=== PATIENT | male | born 1935 | race Caucasian/White ===

== ENCOUNTER 2017-08-12 18:10 | Inpatient (IN) | payer OTHER, MEDICARE ==
--- NOTE | ~2017-08-12 | HC ---
[facility] [place] [address] CONSULTATION Name: DOMENICOANGELES Room #: 200-I ADM IN M.R.#: [id number] Admission: 08/12/17 Attend Phys: Alberto De La Torre MD, Discharge: Date of : 33 Report #: [id number] THIS REPORT FOR: //name// CC: Jamel De La Torre REASON FOR CONSULTATION: Heart block HISTORY OF PRESENT ILLNESS: The patient is an 82-year-old who follows with Dr. De La Torre, over the past several days he has been experiencing increased shortness of breath, presyncopal symptoms. He called into the office and his beta kai was decreased. However, when he came in to clinic yesterday, he was noted to be in 2:1 heart block as well as complete heart block with a junctional escape rhythm. His beta blockers have been held for 48 hours as of today and he still has a 2:1 heart block and complete heart block with ventricular rates in the 20s to 30s. REVIEW OF SYSTEMS: A 12-point review of systems was performed and was negative other than what I mentioned above. PAST MEDICAL HISTORY: Includes: 1. Coronary artery disease, status post stents to the LAD and circumflex. 2. Hypertension. 3. Hypercholesterolemia. 4. Prior CVA. 5. Carotid stenosis. 6. Ischemic cardiomyopathy with an EF of 40-45%. SOCIAL HISTORY: He does not smoke. FAMILY HISTORY: Noncontributory. ALLERGIES: None. MEDICATIONS: Have been reviewed and include Meloxicam, losartan, aspirin, terazosin, Keppra, insulin, atorvastatin, Zofran, and hydrocodone. PHYSICAL EXAMINATION: VITAL SIGNS: Temperature is 36.3, pulse is 33, respirations 18, blood pressure 124/48, and sats are 98%. GENERAL: He is in no acute distress. HEENT: Oropharynx is clear. NECK: Supple with no thyromegaly. HEART: Bradycardic. No murmurs. LUNGS: Clear to auscultation bilaterally. ABDOMEN: Soft, nontender, and nondistended with no hepatosplenomegaly. EXTREMITIES: There is no clubbing, cyanosis, or edema. [facility] [address] [place] [address] CONSULTATION Name: ANGELES ACUÑA Kevin Room #: 200-I [facility] IN [facility].#: [id number] Admission: 08/12/17 Attend Phys: Alberto De La Torre MD, Discharge: Date of : 33 Report #: [id number] NEUROLOGIC: Cranial nerves 2-12 are intact. Chest x-ray shows no acute process. EKG shows 2:1 heart block. Telemetry shows 2:1 heart block and complete heart block. LABS: White count is 5.5, hemoglobin 10.6, platelets 173. Coags: INR is 1.1. Chemistry: Sodium is 143, potassium 4.2, BUN 44, creatinine 1.1, and glucose 126. AST, ALT, and alk phos are normal. ASSESSMENT: 1. Complete heart block. 2. Mild ischemic cardiomyopathy, ejection fraction of 40 to 45%. 3. Coronary artery disease. 4. Peripheral vascular disease. 5. Prior cerebrovascular accident. The patient is an 82-year-old with history of coronary artery disease and an ischemic cardiomyopathy, ejection fraction of 40-45%, who is here with a complete heart block. He requires pacemaker implantation. He also requires long-term beta blockers for his cardiomyopathy and his coronary artery disease. As such, I have recommended that he undergo pacemaker implantation. Given his decreased ejection fraction and anticipated chronic pacing at a 100% burden, I recommended that he undergo a biventricular pacemaker implantation. We have discussed the details of the procedure including the risks, which include, but not limited to bleeding, infection, vascular damage, cardiac perforation, and pneumothorax. He understands these risks and is willing to proceed. <ELECTRONICALLY SIGNED> By: Andres Rai MD 08/14/17 1406 1100 1349 Andres Rai MD /nt
--- NOTE | ~2017-08-12 | P ---
[facility] [place] [address] PROCEDURE REPORT Name: ANGELES ACUÑA Room #: 200-I [facility] IN .R.#: [id number] Admission: 08/12/17 Attend Phys: Alberto De La Torre MD, Discharge: 08/14/17 Date of : 33 Report #: [id number] THIS REPORT FOR: //name// CC: Jamel De La Torre PROCEDURE PERFORMED: Pacemaker insertion. PREOPERATIVE DIAGNOSES: 1. Complete heart block. 2. Ischemic cardiomyopathy, ejection fraction of 40-45%. HISTORY OF PRESENT ILLNESS: The patient is an 82-year-old with a history of coronary artery disease, ischemic cardiomyopathy, EF of 40-45%, who presents with complete heart block. The patient requires beta kai therapy for his coronary artery disease and cardiomyopathy. I recommended that he undergo a pacemaker implantation given his EF of less than 50% and history of cardiomyopathy and anticipated 100% RV pacing, I have recommended that he undergo a biventricular device implantation. ANESTHESIA: The patient underwent MAC anesthesia with no anesthesia related complications. PROCEDURE: The patient underwent informed consent where we discussed the details of the procedure including the risk, which include, but not limited to bleeding, infection, vascular damage, cardiac perforation and pneumothorax. He understood these risks and was willing to proceed. The patient was brought to the EP laboratory in a fasting and sedated state and prepped and draped in a sterile fashion. The patient received IV antibiotics prior to initiation of the procedure. A venogram was performed showing patency of the left axillary vein. Next, I injected lidocaine below the level of left clavicle. Incision was made and pocket was created over the prepectoral fascia and access was obtained 3 times to the left axillary vein using the extrathoracic approach. Sheaths were positioned using the modified Seldinger technique. I first placed a lead into the right ventricular apex and right atrial appendage both with adequate pacing and sensing thresholds and these were sutured to the prepectoral fascia. Next, I placed my coronary guide sheath and obtained access to the coronary sinus and performed a venogram of the coronary sinus, which showed a nice posterolateral branch. I was able to easily deliver a quadripolar lead into this vessel with good pacing and sensing thresholds. The leads were sutured to the prepectoral fascia. The device was connected to the leads and tested and found to be functioning normally. The pocket was irrigated with vancomycin and then the pocket was closed in 3 layers using 2-0 for the deep layer, 3-0 for the middle layer and 4-0 for the subcuticular layer. The patient awoke neurologically and hemodynamically intact with no complications and no significant bleeding. The implanted pacemaker was a [facility] [address] [place] [address] PROCEDURE REPORT Name: ANGELES ACUÑA Room #: 200-I [facility] IN M.R.#: [id number] Admission: 08/12/17 Attend Phys: Alberto De La Torre MD, Discharge: 08/14/17 Date of : 33 Report #: [id number] model #[id number], serial #[id number]. The atrial lead was a [employer] model #2088TC, 52 cm, serial #[id number]. This lead demonstrated a P-wave of 2.6 millivolts, pacing impedance of 345 ohms, pacing threshold 0.4 volts at 0.4 milliseconds. The RV lead was a [employer] model #2088TC, 58 cm, serial #[id number] with an R-wave of 8.8 millivolts, pacing impedance of 525 ohms and a pacing threshold of 0.6 volts at 0.4 milliseconds. The LV lead was a [employer] model #1458Q, 86 cm, serial #[id number]. This lead demonstrated an impedance of 1100 ohms and a pacing threshold of 0.6 volts at 0.4 milliseconds in the M3-P4 pacing configuration also known as vector 7. This LV pacing configuration was chosen due to its basal pacing configuration and good thresholds. The device was programmed to the DDD 60-130 mode. CONCLUSIONS: 1. Successful biventricular pacemaker insertion. 2. Satisfactory atrial, right ventricular and left ventricular pacing and sensing thresholds. <ELECTRONICALLY SIGNED> By: Andres Rai MD 08/20/17 1141 1147 1254 Anders Rai MD /nt
[~2017-08-12 18:10] MED LIST: ADULT LOW DOSE81 MG PO; APHEN325 MG PO; ASPIR 8181 M1 PO; ASPIRIN EC325 M1 PO; ASPIRIN EC81 M1 PO; AVAPRO 150 MG150 M1 PO; BENICAR 5 MG5 M1 PO; BENICAR PO; CALCIUM 600 +1 EAC5 PO; COLACE100 MG PO; DICLOFENAC SODI75 M1 PO; HYTRIN 2MG CAPSU2 M1 PO; KEPPRA 500 MG500 M1 PO; LIPITOR40 MG PO; LOPRESSOR25 PO; MEN'S 50+ ADVA1 EACH PO; MOBIC15 MG PO; MULTI-VITAMIN1 EAC5 PO; NORCO 5-325 TA1 EACH PO; PLAVIX 75 MG TA75 M1 PO; SIMVASTATIN40 MG PO
[2017-08-12 18:44] LABS: HEMATOCRIT 31.1 % (42.0-52.0); HEMOGLOBIN 10.6 gm/dL (14.0-18.0); MCH 31.2 pg (26.0-34.0); MCHC 34.1 g/dL (28.0-37.0); MCV 91.5 fL (80.0-100.0); RBC 3.39 mil/uL (4.50-6.00); RDW 13.8 % (10.5-14.5); WBC 5.5 thou/uL (4.0-11.0)
[2017-08-12 18:59] LABS: ALBUMIN 3.5 g/dL (3.4-5.0); APTT 23.3 Seconds (24.5-32.8); CREATININE 1.1 mg/dL (0.7-1.3); POTASSIUM 4.2 mmol/L (3.5-5.1); PROTIME 10.5 Seconds (9.3-11.4); TOTAL BILIRUBIN 0.6 mg/dL (<0.1-1.0); TOTAL PROTEIN 6.4 g/dL (6.4-8.2)
[2017-08-12 19:16] VITALS: BP 130/50
[2017-08-13 00:46] VITALS: BP 160/64
[2017-08-13 05:47] VITALS: BP 118/40
[2017-08-13 08:09] VITALS: BP 124/45
[2017-08-13 12:23] VITALS: BP 134/51
[2017-08-13 15:26] VITALS: BP 155/77
[2017-08-13 19:05] VITALS: BP 142/62
[2017-08-14 00:23] VITALS: BP 162/52
[2017-08-14 04:21] VITALS: BP 156/58
[2017-08-14 07:34] VITALS: BP 206/69
[2017-08-14 08:00] VITALS: BP 138/55
[2017-08-14 11:25] VITALS: BP 138/55
[2017-08-14 12:10] VITALS: BP 161/70
== END 2017-08-14 14:27 | disposition home or self-care (01) | DRG 244 ==
LOC: 2N 18:10 → ENTRNSPT 08-14 13:04 → EDTRNSPTSTS 08-14 13:06 → 2N 08-14 14:27
PROVIDERS: Internal Medicine Cardiovascular Disease
PROC: 02HK3JZ Insertion of Pacemaker Lead into Right Ventricle, Percutaneous Approach (ICD-10-PCS; principal; 2017-08-13)
PROC: 0JH606Z Insertion of Pacemaker, Dual Chamber into Chest Subcutaneous Tissue and Fascia, Open Approach (ICD-10-PCS; principal; 2017-08-13)
PROC: 02H63JZ Insertion of Pacemaker Lead into Right Atrium, Percutaneous Approach (ICD-10-PCS; principal; 2017-08-13)
PROC: 3E0102A Introduction of Anti-Infective Envelope into Subcutaneous Tissue, Open Approach (ICD-10-PCS; principal; 2017-08-13)
DX: I44.1 Atrioventricular block, second degree (principal); I25.5 Ischemic cardiomyopathy; I25.10 Atherosclerotic heart disease of native coronary artery without angina pectoris; I10 Essential (primary) hypertension; E78.00 Pure hypercholesterolemia, unspecified; I73.9 Peripheral vascular disease, unspecified; I65.29 Occlusion and stenosis of unspecified carotid artery; Z79.82 Long term (current) use of aspirin; Z95.5 Presence of coronary angioplasty implant and graft; Z86.73 Personal history of transient ischemic attack (TIA), and cerebral infarction without residual deficits; Z79.899 Other long term (current) drug therapy
CPT/HCPCS: 10081; 62110; 62900; 70005

== ENCOUNTER → 2019-05-09 | Outpatient (CLI) | payer OTHER, MEDICARE | LOC: SJCVCIMAG 12:45 | DX: I44.2 Atrioventricular block, complete (principal) ==

== ENCOUNTER 2019-09-17 14:31 | Inpatient (IN) | payer OTHER, MEDICARE ==
[~2019-09-17] VITALS: Ht 170.2 cm; Wt 78.9 kg
[2019-09-17 14:33] VITALS: BP 77/34
[2019-09-17] MEDS ORDERED: LORCET 5-325 M1 EACH PO (15:12)
[2019-09-17 15:32] LABS: ABSOLUTE NEUTROPHILS 4.5 thou/uL (1.4-8.2); BASOPHILS 0.4 % (0.0-2.0); EOSINOPHILS 0.2 % (0.0-3.0); HEMATOCRIT 28.2 % (42.0-52.0); HEMOGLOBIN 9.7 gm/dL (14.0-18.0); LYMPHOCYTES 16.4 % (24.0-44.0); MCH 32.1 pg (26.0-34.0); MCHC 34.4 g/dL (28.0-37.0); MCV 93.5 fL (80.0-100.0); MONOCYTES 7.6 % (1.0-8.0); PLATELET COUNT 201 thou/uL (150-400); POLYS 75.4 % (36.0-66.0); RBC 3.02 mil/uL (4.50-6.00); RDW 13.3 % (10.5-14.5)
[2019-09-17 15:37] LABS: ANION GAP 7 mmol/L (7-16); BUN 33 mg/dL (7-18); CALCIUM 8.6 mg/dL (8.5-10.1); CHLORIDE 107 mmol/L (98-107); CO2 26 mmol/L (21-32); CREATININE 1.2 mg/dL (0.7-1.3); GLUCOSE 183 mg/dL (74-106); POTASSIUM 5.3 mmol/L (3.5-5.1); SODIUM 140 mmol/L (136-145)
[2019-09-17 15:45] LABS: TROPONIN-I <0.06 ng/mL (<0.06)
[2019-09-17 15:50] LABS: APTT 22.6 Seconds (24.5-32.8); PROTIME 10.6 Seconds (9.3-11.4)
[2019-09-17 17:25] LABS: HEMATOCRIT 25.7 % (42.0-52.0)
[2019-09-17 18:04] VITALS: BP 125/52
[2019-09-17 18:26] VITALS: BP 117/48
[2019-09-17 19:32] VITALS: BP 117/52
[2019-09-17] MEDS ORDERED: METOPROLOL TART25 GM PO (20:19)
[2019-09-17] MEDS ORDERED: METFORMIN HCL500 M3 PO (20:25)
--- NOTE | 2019-09-17 23:23 | NUR ---
ADMIT:PT ADMITTED FROM ED WITH LGIB.A/OX4.PT HAS H/O OF CVA.HAS EXPRESSIVE APHASIA.UP WITH SBA.USES A CANE.VSS.MED RECONCILLED WITH HELP OF THE ,YASIR DOSS.ADMISSION ASSESSMENT COMPLETED DOCUMENTED.PT DENIES PAIN OR ANY DISTRESS.V-PACED ON MONITOR.ON RA W/O RESP DISTRESS.VOIDS VIA URINAL.IVF INFUSING.POC IS TO CONT TO MONITOR H&H AND CONTNUES WITH POC.WILL CONT TO MONITOR PER POC.
[2019-09-17 23:34] VITALS: BP 130/52
[2019-09-18 02:37] LABS: HEMATOCRIT 24.4 % (42.0-52.0); HEMOGLOBIN 8.3 gm/dL (14.0-18.0)
[2019-09-18 05:04] VITALS: BP 130/62
--- NOTE | 2019-09-18 07:13 | NUR ---
PT BEEN RESTING IN NO ACUTE DISTRESS.VSS.NO ACTIVE EPISODE OF BLEEDING.PT VOIDING VIA URINAL. UPDATED ON PT'S STATUS THIS AM.IVF INFUSING PER ORDERS.PT IS NPO.WILL CONT TO MONITOR PER POC.
[2019-09-18 08:00] VITALS: BP 113/44
[2019-09-18 12:00] VITALS: BP 115/46
[2019-09-18 16:00] VITALS: BP 122/52
[2019-09-18 16:22] LABS: HEMATOCRIT 21.7 % (42.0-52.0); HEMOGLOBIN 7.5 gm/dL (14.0-18.0)
--- NOTE | 2019-09-18 16:35 | HC ---
[facility] [place] [address] CONSULTATION Name: DOMENICOANGELES Room #: 213-P ADM IN M.R.#: [id number] Admission: 09/17/19 Attend Phys: Grant Eden MD Discharge: Date of : 33 Report #: [id number] THIS REPORT FOR: cc: Jamel Chaparro MD, David A. MD McElhinney, Christian C. MD ~ CC: Grant Alex DATE OF SERVICE: 09/18/2019 HISTORY OF PRESENT ILLNESS: The patient is an 84-year-old male began having bright red blood per rectum yesterday. This was not associated with abdominal pain, possibly with some diarrhea. No constipation recently. The patient is a fairly poor historian. He denies any nausea or vomiting currently. His was on the phone when I was interviewing the patient as well and I was able to obtain history from her. No previous history of GI bleed. Last colonoscopy believes that when he was approximately 78 years old. I do not have a copy of these results. The patient is on aspirin and Plavix as well as meloxicam for history of coronary artery disease and a previous history of complete heart block. He also has a history of CVA. His weight has been stable. He denies any dysphagia. He denies any chest pain or shortness of breath. No cough or fever recently. His aspirin and Plavix have been held. The patient's hemoglobin on admission was 9.7. He has dropped to 8.3 today. He has had no further bleeding this morning apparently. PAST MEDICAL HISTORY: Coronary artery disease, history of complete heart block, he has a pacemaker, hypertension, hypercholesterolemia, previous history of CVA with a history of expressive aphasia, carotid arterial stenosis, osteoarthritis. He had previous back surgery, congestive heart failure. ALLERGIES: No known drug allergies. SOCIAL HISTORY: Denies any tobacco or alcohol use. FAMILY HISTORY: Negative for colon cancer. MEDICATIONS: On admission; calcium, Mobic, metoprolol, Hytrin, multivitamin, Lipitor, Plavix, Benicar, aspirin, and Lorcet p.r.n. REVIEW OF SYSTEMS: As per HPI. PHYSICAL EXAMINATION: [facility] [address] [place] [address] CONSULTATION Name: ANGELES ACUÑA Room #: [address] [place] [address] [place] [facility].#: [id number] Admission: 09/17/19 Attend Phys: Grant Eden MD Discharge: Date of : 33 Report #: [id number] VITAL SIGNS: Temperature is 97.0, pulse 75, blood pressure 113/44, and respiratory rate is 18. GENERAL: He is alert, in no acute distress. HEENT: Sclerae nonicteric. Oropharynx clear. NECK: Supple, without lymphadenopathy. CARDIOVASCULAR: Regular rate. CHEST: Clear to auscultation anteriorly bilaterally. ABDOMEN: Soft, nontender, nondistended, normoactive bowel sounds. EXTREMITIES: No cyanosis, clubbing or edema. LABORATORY DATA: Sodium 140, potassium 4.2, chloride 107, bicarbonate 26, BUN 33, creatinine 1.2. Troponin less than 0.06. INR 1.0. WBC is 6.0, hemoglobin 8.3 this morning, MCV 93.5, and platelet count 201. IMAGING STUDIES: CT scan of the abdomen and pelvis on 09/17/2019, diverticulosis without evidence of diverticulitis, otherwise essentially negative CT. ASSESSMENT AND PLAN: GI bleed. The patient with bright red blood per rectum, suspect possible diverticular bleed. I had a long discussion with the patient and his today regarding our options, could consider proceeding with colonoscopy and possible upper endoscopy tomorrow to rule out peptic ulcer disease as well as further evaluation of his colon, especially since it has been 6 years at least since his last colonoscopy. I explained the risks and benefits of this. The other option is to observe at this time and continue to monitor closely. The plan is to proceed with prepping for colonoscopy and esophagogastroduodenoscopy for tomorrow. Continue to monitor his hemoglobin closely. Continue to hold his aspirin and Plavix. Thank you for allowing me to participate in his care. <ELECTRONICALLY SIGNED> By: Fabian Tovar MD 09/18/19 1635 1029 1628 Fabian Tovar MD /nt
--- NOTE | 2019-09-18 18:34 | NUR ---
PT ALERT AND ORIENTED WITH FORGETFULNESS. PLEASANT AND COOPERATIVE WITH CARES. SEEN BY THE GI DOCTOR. NPO AFTER MIDNIGHT FOR COLONOSCOPY IN AM. HAD 2 EPISODE OF BLOODY STOOL. BOWEL PREP STARTED. FAMILY UPDATED ON PT'S PROGRESS. WILL CONTINUE TO MONITOR.
[2019-09-18 20:06] VITALS: BP 102/80
[2019-09-18 22:25] LABS: HEMATOCRIT 20.7 % (42.0-52.0)
[2019-09-19 04:26] VITALS: BP 126/88; BP 141/70; BP 142/99; BP 156/69
--- NOTE | 2019-09-19 04:42 | NUR ---
ASSESSMENT DOCUMENTED.PT CONTINUES WITH BOWEL PREP.MUCH CLEAR WITH SPOTS OF RED BLOOD.DENIES ANY DISCOMFORT,RESTING IN BED IN NO ACUTE DISTRESS.H/H ORDERED,HGB 7.0.COMBO WELDER NOTIFIED N/O GIVEN TO TRANSFUSE,PT NOTIFIED WELL THE PATIENT,CONSENT GIVEN TO CONTINUE WITH TRANSFUSION.PT RECEIVING BLOOD TRANSFUSION AT THIS TIME.WILL CONTINUES TO MONITOR.PT SCHEDULED FOR COLONOSCOPY THIS AM.
[2019-09-19 04:44] VITALS: BP 135/59
[2019-09-19 04:45] LABS: HEMOGLOBIN 7.4 gm/dL (14.0-18.0)
[2019-09-19 07:45] VITALS: BP 126/88
--- NOTE | 2019-09-19 08:02 | EKG ---
[facility] [place] [address] ELECTROCARDIOGRAM REPORT Name: DOMENICOANGELES Kevin Room #: 213-P ADM IN M.R.#: [id number] Admission: 09/17/19 Attend Phys: Grant Eden MD Discharge: Date of : 33 Report #: [id number] THIS REPORT FOR: cc: Jamel Chaparro MD, David A. 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[facility] 1935 Requested By: Dominic Stevens Order Number: [id number] MD: Ang Cummings Measurements Intervals [place] Rate: 62 P: CT: 251 QRS: 139 QRSD: 150 T: -10 QT: 479 QTc: 487 Interpretive Statements Atrial-sensed ventricular-paced complexes No further analysis attempted due to paced rhythm Compared to ECG 06/27/2014 09:01:24 Pacing is now present Electronically Signed On 09-19-2019 8:00:22 CDT by Ang Cummings [email or web address] <ELECTRONICALLY SIGNED> By: Ang Cummings MD, [facility] 09/19/19 0800 1533 1533 Ang Cummings MD, [facility] /EPI
[2019-09-19 08:30] LABS: HEMATOCRIT 25.6 % (42.0-52.0); HEMOGLOBIN 8.9 gm/dL (14.0-18.0)
--- NOTE | 2019-09-19 14:30 | NUR ---
Sp with RN who reports communication is with as patient is forgetfull. Sp with who reports patient in colonoscopy and she is awaiting phys to call after procedure to update. She prefers casemgt call later as she wants to keep phone open for phys call.
[2019-09-19 15:00] VITALS: BP 130/64
[2019-09-19 16:10] LABS: HEMATOCRIT 25.4 % (42.0-52.0); HEMOGLOBIN 8.9 gm/dL (14.0-18.0)
--- NOTE | 2019-09-19 16:44 | NUR ---
Patient unavailable by phone sp with . reports she sp with GI phys and her understanding they will monitor patient overnight and possible dc in am. PCP is Dr Chaparro. Patient uses a cane and cont to drive. does not feel any needs at dc. She is avail to assist patient with recovery of hosp stay. Therapy to eval casemgt following.
--- NOTE | 2019-09-19 16:54 | NUR ---
ASSESSMENT CHARTED. PT ALERT AND ORIENTED WITH FORGETFULNESS. HAD COLONOCSOPY AND EGD THIS AM. NO BLEEDING NOTED. FALL PRECAUTION IN PLACE. WILL CONTINUE TO MONITOR.
--- NOTE | 2019-09-19 19:34 | P ---
[facility] [place] [address] PROCEDURE REPORT Name: DOMENICOANGELES Room #: 213-P [facility] IN M.R.#: [id number] Admission: 09/17/19 Attend Phys: Grant Eden MD Discharge: Date of : 33 Report #: [id number] THIS REPORT FOR: cc: Jamel Chaparro MD, David A. MD McElhinney, Christian C. MD ~ CC: GRANT Alex DATE OF SERVICE: 09/19/2019 PROCEDURE PERFORMED: Colonoscopy. HISTORY OF PRESENT ILLNESS: The patient is an 84-year-old male with a history of bright red blood per rectum, anemia, drop in hemoglobin. He has undergone transfusion of 1 unit of packed cells. He was on aspirin and Plavix this has been held. Upper endoscopy was just performed, which showed a few small gastric erosions. No signs of bleeding. No evidence of blood throughout the exam on upper endoscopy today. DESCRIPTION OF PROCEDURE: The risks and benefits of the procedure were explained to the patient and his , those risks including but not limited to bleeding, perforation and the risk of sedation. They understood these risks and gave informed consent. Sedation was given using propofol per anesthesia. Next, a digital rectal exam was initially performed, which was normal. Next, using a standard Olympus colonoscope, the scope was placed in the patient's anus and advanced under direct vision to the cecum. The overall prep was good. The cecum and ileocecal valve were normal in appearance. Ascending, transverse, descending colon were normal. Multiple diverticulii were noted in the sigmoid colon, no evidence of inflammation. No evidence of bleeding. There was no blood throughout the exam today. The rectal mucosa was normal. On retroflexion, small nonbleeding internal hemorrhoids were noted. The scope was then withdrawn and the procedure terminated. The patient tolerated the procedure well. IMPRESSION: 1. Sigmoid diverticulosis. 2. Small internal hemorrhoids. 3. Otherwise, normal colonoscopy. RECOMMENDATIONS: No signs of bleeding on EGD or colonoscopy today. The patient [address] [address] PROCEDURE REPORT Name: ANGELES ACUÑA Room #: 213-P [facility] IN ..#: [id number] Admission: 09/17/19 Attend Phys: Grant Eden MD Discharge: Date of : 33 Report #: [id number] may have had a diverticular bleed that has now stopped. At this time, would recommend advancing diet and monitoring. If evidence of recurrent bleed, could consider nuclear medicine bleeding scan at that point. We will continue to hold his aspirin and Plavix at this time. Thank you for allowing me to participate in his care. <ELECTRONICALLY SIGNED> By: Fabian Tovar MD 09/19/19 1934 1511 1831 Fabian Tovar MD /nini
--- NOTE | 2019-09-19 19:34 | P ---
[facility] [place] [address] PROCEDURE REPORT Name: DOMENICOANGELES Room #: 213-P [facility] IN M.R.#: [id number] Admission: 09/17/19 Attend Phys: Grant Eden MD Discharge: Date of : 33 Report #: [id number] THIS REPORT FOR: cc: Jamel Chaparro MD, David A. MD McElhinney, Christian C. MD ~ CC: Grant Aelx DO DATE OF SERVICE: 09/19/2019 PROCEDURE PERFORMED: Upper endoscopy. HISTORY OF PRESENT ILLNESS: The patient is an 84-year-old male with recent bright red blood per rectum. The patient had been on aspirin and Plavix. Last colonoscopy was approximately 6 years ago, reportedly. I do not have a copy of these results, is also taking meloxicam. No abdominal pain. Hemoglobin on admission 9.7, dropped to 8.3. No further bleeding. Last hemoglobin is 8.9. The patient was transfused 1 unit of packed cells. His hemoglobin was at a low of 7.0. Plan is for EGD and colonoscopy today. DESCRIPTION OF PROCEDURE: The risks and benefits of the procedure were explained to the patient and his , those risks including but not limited to bleeding, perforation and the risk of sedation. He understood these risks and gave informed consent. Sedation was given using propofol per anesthesia. Next, using a standard Olympus upper endoscope, the scope was placed in the patient's mouth and advanced under direct vision through the esophagus, stomach and into the second portion of the duodenum. The esophagus was normal throughout. The GE junction was normal. Overall, the gastric mucosa was normal other than a few small erosions. There was no evidence of bleeding or old blood throughout the exam today. The pylorus was normal and patent. The duodenal bulb, first and second portion were normal other than a diverticulum was noted near the major papilla, which was normal in appearance. No AVMs or ulcers were noted in the duodenum. The scope was then withdrawn and the procedure terminated. The patient tolerated the procedure well. IMPRESSION: 1. Few small gastric erosions. 2. Duodenal diverticulum. 3. Otherwise, normal upper endoscopy. RECOMMENDATIONS: We will proceed with colonoscopy the next today. [address] [address] PROCEDURE REPORT Name: ANGELES ACUÑA Room #: 213-P [facility] IN .R.#: [id number] Admission: 09/17/19 Attend Phys: Grant Eden MD Discharge: Date of : 33 Report #: [id number] Thank you for allowing me to participate in his care. <ELECTRONICALLY SIGNED> By: Fabian Tovar MD 09/19/19 1934 1508 182 Fabian Tovar MD /nt
[2019-09-19 20:32] VITALS: BP 134/56
[2019-09-19 21:57] LABS: HEMOGLOBIN 7.9 gm/dL (14.0-18.0)
[2019-09-20 04:35] VITALS: BP 113/50
--- NOTE | 2019-09-20 05:40 | NUR ---
pt resting quietly in bed, impulsive and sets bed alarm off, reoriented frequently, anxious to go home today, vss, no c/o pain and no sign of bleeding will con't to monitor per ppoc.
[2019-09-20 05:59] LABS: HEMATOCRIT 23.7 % (42.0-52.0); HEMOGLOBIN 8.2 gm/dL (14.0-18.0)
[2019-09-20 07:30] VITALS: BP 132/60
[2019-09-20 12:00] VITALS: BP 132/57
--- NOTE | 2019-09-20 15:49 | NUR ---
ASSUMED CARE AT SHIFT CHANGE, ALERT AND ORIENTED BUT FORGETFUL. VSS AND AFEBRILE. DENIES ANY DISCOMFORT OR CP. PATIENT PROGRESSING TOWARDS GOAL,PLAN IS TO DISCHARGE HOME TODAY, AND WAITING FOR DRS. FAMILY UPDATED WITH THE PATIENT POC.
[2019-09-20] MEDS ORDERED: PROTONIX40 M2 PO (16:42)
[2019-09-20 17:14] VITALS: BP 132/57
== END 2019-09-20 18:15 | disposition home or self-care (01) | DRG 377 ==
LOC: ER 14:31 → EROBS 16:34 → 2N 16:34
PROVIDERS: Emergency Medicine; Nurse Practitioner Family; ADMIT Hospitalist
PROC: 0DJD8ZZ Inspection of Lower Intestinal Tract, Via Natural or Artificial Opening Endoscopic (ICD-10-PCS; principal; 2019-09-19)
PROC: 0DJ08ZZ Inspection of Upper Intestinal Tract, Via Natural or Artificial Opening Endoscopic (ICD-10-PCS; principal; 2019-09-19)
PROC: 30233N1 Transfusion of Nonautologous Red Blood Cells into Peripheral Vein, Percutaneous Approach (ICD-10-PCS; principal; 2019-09-19)
DX: K92.2 Gastrointestinal hemorrhage, unspecified (principal); R57.8 Other shock; D62 Acute posthemorrhagic anemia; I44.2 Atrioventricular block, complete; I50.22 Chronic systolic (congestive) heart failure; I25.2 Old myocardial infarction; E78.5 Hyperlipidemia, unspecified; E86.1 Hypovolemia; I95.89 Other hypotension; I25.10 Atherosclerotic heart disease of native coronary artery without angina pectoris; M19.90 Unspecified osteoarthritis, unspecified site; E78.00 Pure hypercholesterolemia, unspecified; I65.29 Occlusion and stenosis of unspecified carotid artery; K64.8 Other hemorrhoids; I25.5 Ischemic cardiomyopathy; G47.33 Obstructive sleep apnea (adult) (pediatric); I11.0 Hypertensive heart disease with heart failure; G40.909 Epilepsy, unspecified, not intractable, without status epilepticus; Z79.899 Other long term (current) drug therapy; Z86.73 Personal history of transient ischemic attack (TIA), and cerebral infarction without residual deficits; Z95.0 Presence of cardiac pacemaker; Z03.818 Encounter for observation for suspected exposure to other biological agents ruled out
CPT/HCPCS: 10081; 62110; 62900; 70005

== ENCOUNTER 2019-09-30 15:11 | Inpatient (IN) | payer OTHER, MEDICARE ==
[~2019-09-30] VITALS: Ht 167.6 cm; Wt 61.7 kg
[~2019-09-30 15:11] MED LIST changes: +LORCET 5-325 M1 EACH PO; +METFORMIN HCL500 M3 PO; +METOPROLOL TART25 GM PO; +PROTONIX40 M2 PO
[2019-09-30 15:21] VITALS: BP 126/46
[2019-09-30 15:38] LABS: ABSOLUTE NEUTROPHILS 3.3 thou/uL (1.4-8.2); BASOPHILS 0.5 % (0.0-2.0); EOSINOPHILS 1.4 % (0.0-3.0); HEMATOCRIT 26.6 % (42.0-52.0); HEMOGLOBIN 9.2 gm/dL (14.0-18.0); LYMPHOCYTES 25.1 % (24.0-44.0); MCH 32.5 pg (26.0-34.0); MCHC 34.5 g/dL (28.0-37.0); MCV 94.1 fL (80.0-100.0); MONOCYTES 8.7 % (1.0-8.0); PLATELET COUNT 288 thou/uL (150-400); POLYS 64.3 % (36.0-66.0); RBC 2.83 mil/uL (4.50-6.00); RDW 14.4 % (10.5-14.5); WBC 5.2 thou/uL (4.0-11.0)
[2019-09-30 15:42] LABS: ANION GAP 6 mmol/L (7-16); BUN 12 mg/dL (7-18); CALCIUM 8.1 mg/dL (8.5-10.1); CHLORIDE 105 mmol/L (98-107); CO2 30 mmol/L (21-32); GLUCOSE 166 mg/dL (74-106); POTASSIUM 3.9 mmol/L (3.5-5.1); SODIUM 141 mmol/L (136-145)
[2019-09-30 15:45] LABS: APTT 23.2 Seconds (24.5-32.8); PROTIME 10.1 Seconds (9.3-11.4)
[2019-09-30 15:52] LABS: ALBUMIN 3.6 g/dL (3.4-5.0); SGOT 16 U/L (15-37); SGPT 21 U/L (30-65); TOTAL BILIRUBIN 0.7 mg/dL (0.2-1.0); TOTAL PROTEIN 6.9 g/dL (6.4-8.2); TROPONIN-I <0.06 ng/mL (<0.06)
[2019-09-30 16:17] LABS: URINE BILIRUBIN NEGATIVE (Negative); URINE BLOOD NEGATIVE (Negative); URINE CLARITY CLEAR; URINE COLOR YELLOW; URINE GLUCOSE-RANDOM* 1+ (Negative); URINE KETONES NEGATIVE (Negative); URINE LEUKOCYTES-REFLEX NEGATIVE (Negative); URINE NITRITE-REFLEX NEGATIVE (Negative); URINE PROTEIN (DIPSTICK) NEGATIVE (Negative); URINE UROBILINOGEN 0.2 E.U./dl (0.2-1.0)
[2019-09-30 17:17] VITALS: BP 125/46
[2019-09-30 17:42] VITALS: BP 127/48
[2019-09-30 17:46] LABS: CHOLESTEROL 102 mg/dL (<200); HDL CHOLESTEROL 36 mg/dL (>40); LDL CHOLESTEROL 47 mg/dL (<100); TC:HDL 2.8 Ratio (Not establshd); TRIGLYCERIDE 97 mg/dL (<150); VLDL 19 mg/dL (<40)
--- NOTE | 2019-09-30 18:58 | NUR ---
PT CARE ASSUMED 1809. PACEMAKER, ATRIL PACED. PT PASSED SWALLOW TEST; PLACED ON REGULAR DIET. SBA WITH CANE. POSSIBLE MRI TONIGHT. PT ARRIVED FROM HOME TO ER WITH APHASIA, DIFFICULTY SPEAKING SWALLOWING; SINCE 179909/29/19. DENIES WEAKNESS OR PAIN. COVID NEGATIVE FROM VISIT 1 WK AGO.
[2019-09-30 19:57] VITALS: BP 145/55
--- NOTE | 2019-10-01 03:28 | NUR ---
ASSESSMENTS CHARTED, MEDS CHARTED GIVEN. PATIENT RESTING IN BED AT START OF SHIFT. ARRIVED SHORTLY PRIOR TO SHIFT CHANGE FROM ED. PATIENT WAS ASSESSED AND ADMITTED INTO THE COMPUTER SYSTEM. PATIENT IS PACED ON TELEMETRY, ON ROOM AIR, USING URINAL AT BEDSIDE, DENIES PAIN. RECEIVING FLUIDS. UP WITH ASSIST TO BATHROOM. FALL PRECAUTIONS IN PLACE DURING SHIFT.
[2019-10-01 05:37] VITALS: BP 150/66
[2019-10-01 07:30] VITALS: BP 146/63
--- NOTE | 2019-10-01 09:33 | EKG ---
[facility] [place] [address] ELECTROCARDIOGRAM REPORT Name: DOMENICOANGELES Brown Room #: 203- ADM IN M.R.#: [id number] Admission: 09/30/19 Attend Phys: Diamond Guadalupe Discharge: Date of : 33 Report #: [id number] THIS REPORT FOR: cc: Jamel Chaparro MD, David A. MD Couchonnal, Luis F. 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
--- NOTE | 2019-10-01 15:21 | NUR ---
ASSESSMENT CHARTED. PT ALERT AND ORIENTED WITH FORGETFULNESS. VSS. DENIED HAVING PAIN OR DISCOMFORT. PARTICIPATED IN PT/OT. UPDATED ON PT'S PROGRESS. WAITING FOR NEUROLOGIST. FALL PRECAUTION IN PLACE. WILL CONTINUE TO MONITOR.
[2019-10-01 16:30] VITALS: BP 152/66
[2019-10-01 20:06] VITALS: BP 145/68
--- NOTE | 2019-10-01 23:23 | NUR ---
ASSESSMENTS CHARTED, MEDS GIVEN CHARTED. RESTING EASILY IN BED DURING SHIFT. VPACED ON TELEMETRY, LUNGS CLEAR ON ROOM AIR. USING URINAL AT BEDSIDE, UP WITH STANDBY ASSIST TO BATHROOM. SKIN IS INTACT, DENIES PAIN. PATIENT IS WAITING ON MRI ON THURSDAY. FALL PRECAUTIONS IN PLACE DURING SHIFT.
[2019-10-02 04:00] VITALS: BP 146/66
[2019-10-02 07:30] VITALS: BP 150/71
[2019-10-02] MEDS ORDERED: ASPIR 8181 MG PO (08:33)
[2019-10-02] MEDS ORDERED: CLOPIDOGREL75 MG PO (08:33)
[2019-10-02] MEDS ORDERED: FLOMAX0.4 MG PO (08:34)
[2019-10-02 11:30] VITALS: BP 150/71
--- NOTE | 2019-10-02 11:46 | NUR ---
ASSESSMENT CHARTED. PT ALERT AND ORIENTED. VSS. DENIED HAVING PAIN OR DISCOMFORT. SEEN BY DR. CRAIG. ORDERS GIVEN TO DISCHARGE PT TO HOME. DISCHARGE INSTRUCTIONS GIVEN TO PT AND THE . THEY BOTH VERBERLISED UNDERSTANDING.
--- NOTE | 2019-10-03 18:41 | HC ---
[facility] [place] [address] CONSULTATION Name: ANGELES ACUÑA Kevin Room #: 203-P [facility] M.R.#: [id number] Admission: 09/30/19 Attend Phys: Diamond Guadalupe Discharge: 10/02/19 Date of : 31 Report #: [id number] THIS REPORT FOR: cc: Jamel Chaparro MD,Nick Ramon MD, MD ~ CC: Jamel Guadalupe DATE OF SERVICE: 10/01/2019 HISTORY OF PRESENT ILLNESS: This is an 84-year-old male patient who was seen by me yesterday. The note is being dictated today because got busy with other patients. This patient is unable to provide any reliable history, so the history is from the records as well as by talking to the . This patient has baseline aphasia, which is longstanding. He was here because as per history from the , it became worse. He also has multiple other associated problems. He had a GI bleed and his antiplatelet therapy was stopped. Since then, she has talked to the family doctor as well as GI and they have okayed both aspirin and Plavix. His other problem is that he has a pacemaker, which is not MRI compatible. 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 It also becomes difficult to tell how much improvement he has got after he is being in the hospital. REVIEW OF SYSTEMS: Positive for CVA with pretty significant aphasia. He also has a history of seizure, but that is not his current problem. He had a cardiac stent put in the past. He has a lumbar fusion in the past. This was his relevant 14-point review of system. PAST MEDICAL HISTORY: Positive for CVA. FAMILY HISTORY: Unremarkable. SOCIAL HISTORY: Lives with his whom I talked to yesterday. PHYSICAL EXAMINATION: Indicate he is alert. He can follow commands sometime, but his speech is markedly impaired. He tries to talk say one word or 2 and then get wandered off in the speech, but says that yesterday he was basically speechless but yesterday when I saw him, he did have some speech, but he just say 1 or 2 words then wander off. As far as his cranial nerve examination, it is somewhat difficult, so as neuromuscular; but I do not think there is marked deficit there, but I ____ tell about hemianopsia. Facial is also difficult to tell because he does not follow [facility] [address] [place] [address] CONSULTATION Name: ANGELES ACUÑA Room #: 203-P [facility] M.R.#: [id number] Admission: 09/30/19 Attend Phys: Diamond Guadalupe Discharge: 10/02/19 Date of : 31 Report #: [id number] the instructions all the time. It does not look like he has been diagnosed with atrial fibrillation at any time. He did have two CT, which does not show any acute changes and he cannot have MRI. His blood pressure is running about 150/71. IMPRESSION: Difficult to tell because the patient has pretty significant aphasia in the baseline. It is possible that he extended his stroke because his antiplatelet therapy was stopped because of GI bleed and that has been restarted. He did have a carotid Doppler in May. Therefore, it is unlikely another carotid Doppler, which change the treatment, but I suggested either he should have a CT angio of the head and neck, which the last time was done in 2012 or he should have a carotid Doppler. I will continue his aspirin and Plavix and was pretty adamant that she is going to take him home because she thinks it is making him worse here. If that is the case, then he can have a CT angio of the head and neck on Thursday, but I had clearly discussed with her that our recommendations is to keep the patient until the testing is done, but if she understands that and she understands some risks involved with it, then she can take him home and get it done these test on Thursday, that is going to be her decision. She was telling me that she is going to take him home. About 50 minutes of time was spent taking care of this patient today and majority of that time was spent counseling and coordinating. <ELECTRONICALLY SIGNED> By: Nick Su MD 10/03/19 [id number] Nick Su MD /nt
== END 2019-10-02 12:20 | disposition home or self-care (01) | DRG 57 ==
LOC: ER 15:11 → 2N 16:33 → EROBS 16:33 → 2N 17:42
PROVIDERS: Physician Assistant; ADMIT Hospitalist
DX: I69.321 Dysphasia following cerebral infarction (principal); R47.01 Aphasia; R47.02 Dysphasia; R13.10 Dysphagia, unspecified; I10 Essential (primary) hypertension; E78.5 Hyperlipidemia, unspecified; R47.1 Dysarthria and anarthria; Z79.82 Long term (current) use of aspirin; I25.2 Old myocardial infarction; Z95.5 Presence of coronary angioplasty implant and graft; Z79.899 Other long term (current) drug therapy
CPT/HCPCS: 10081

== ENCOUNTER → 2019-10-12 | Outpatient (CLI) | payer OTHER, MEDICARE ==
[~2019-10-12] MED LIST changes: +ASPIR 8181 MG PO; +CLOPIDOGREL75 MG PO; +FLOMAX0.4 MG PO
== END ==
LOC: SJCVCIMAG 10:16 → SJCVC 10:16
PROVIDERS: ATTEND Internal Medicine Cardiovascular Disease
DX: Z45.02 Encounter for adjustment and management of automatic implantable cardiac defibrillator (principal); R94.31 Abnormal electrocardiogram [ECG] [EKG]; I34.0 Nonrheumatic mitral (valve) insufficiency; I25.10 Atherosclerotic heart disease of native coronary artery without angina pectoris; I42.9 Cardiomyopathy, unspecified; I10 Essential (primary) hypertension; E78.00 Pure hypercholesterolemia, unspecified; I65.23 Occlusion and stenosis of bilateral carotid arteries; G47.33 Obstructive sleep apnea (adult) (pediatric); Z79.899 Other long term (current) drug therapy; Z86.73 Personal history of transient ischemic attack (TIA), and cerebral infarction without residual deficits

== ENCOUNTER → 2021-04-30 | Outpatient (CLI) | payer OTHER, MEDICARE | LOC: SJCVCIMAG 09:25 | PROVIDERS: ATTEND Internal Medicine Cardiovascular Disease | DX: I65.23 Occlusion and stenosis of bilateral carotid arteries (principal); I25.10 Atherosclerotic heart disease of native coronary artery without angina pectoris; E78.2 Mixed hyperlipidemia; I10 Essential (primary) hypertension; I42.9 Cardiomyopathy, unspecified; I63.9 Cerebral infarction, unspecified; G47.33 Obstructive sleep apnea (adult) (pediatric); Z95.810 Presence of automatic (implantable) cardiac defibrillator; Z79.82 Long term (current) use of aspirin; Z79.899 Other long term (current) drug therapy; Z95.828 Presence of other vascular implants and grafts ==